=== PATIENT | male | born 1945 ===

== ENCOUNTER 2018-11-30 07:41 | Outpatient (CLI) | payer OTHER ==
[~2018-11-30] VITALS: Ht 152.4 cm; Wt 81.2 kg
== END 2018-11-30 08:00 | disposition home or self-care (01) ==
LOC: OFIC 805 07:41
DX: H90.3 Sensorineural hearing loss, bilateral (principal); H61.23 Impacted cerumen, bilateral

== ENCOUNTER 2019-01-04 07:29 | Outpatient (CLI) | payer OTHER ==
[~2019-01-04] VITALS: Ht 152.4 cm; Wt 81.2 kg
== END 2019-01-04 07:45 | disposition home or self-care (01) ==
LOC: OFIC 805 07:29
DX: H90.3 Sensorineural hearing loss, bilateral (principal)

== ENCOUNTER 2019-03-15 07:09 | Outpatient (CLI) | payer OTHER ==
[~2019-03-15] VITALS: Ht 152.4 cm; Wt 81.2 kg
== END 2019-03-15 12:37 | disposition home or self-care (01) ==
LOC: OFIC 805 07:09
DX: H90.3 Sensorineural hearing loss, bilateral (principal)

== ENCOUNTER 2019-04-12 07:06 | Outpatient (CLI) | payer OTHER ==
[~2019-04-12] VITALS: Ht 152.4 cm; Wt 81.2 kg
== END 2019-04-12 12:46 | disposition home or self-care (01) ==
LOC: OFIC 805 07:06
DX: H90.3 Sensorineural hearing loss, bilateral (principal)